=== PATIENT | female | born 1995 | race Caucasian/White ===

== ENCOUNTER 2016-07-16 12:40 | Emergency (ER) | payer OTHER ==
[2016-07-16 12:51] VITALS: RESP 16
[2016-07-16] MEDS ORDERED: OXYCODONE/APAP 5/325 TAB PO ONE (13:16)
--- NOTE | 2016-07-16 13:16 | EDPHY ---
H & P Time Seen by Provider: 07/16/16 13:16 HPI/ROS: Chief complaint. Wrist injury HPI. 21-year-old female fell snowboarding this morning. It was described as a FOOSH type injury. She injured her left wrist. Denies any other injury. Patient is right handed. No previous injury to the left wrist. It hurts to move and she has swelling ROS Constitutional. no fever/chills, no weakness Eyes. no problems with vision ENT. no sore throat, no nasal drainage Cardiovascular. no chest pain Respiratory. no shortness of breath, no cough Abdominal. no abdominal pain, no nausea/vomiting, no diarrhea . no problems urinating MS. Left wrist pain and swelling Skin. no rash Lymph. no swollen glands Neuro. no headache, no dizziness, no difficulty walking or with speech Past Medical/Surgical History: Healthy Social History: Single, nonsmoker, no alcohol Smoking Status: Never smoked Physical Exam: General Appearance: Alert well-developed female moderate distress vital signs are stable Eyes: Pupils equal and round no pallor or injection. ENT, Mouth: Mucous membranes are moist. Respiratory: There are no retractions, lungs are clear to auscultation. Cardiovascular: Regular rate and rhythm. Gastrointestinal: Abdomen is soft and nontender, no masses, bowel sounds normal. Neurological: Awake and alert, sensory and motor exams grossly normal. Skin: Warm and dry, no rashes. Musculoskeletal: Neck is supple nontender. Extremities obvious swelling on the radial aspect of the left wrist. No significant deformity. Distal motor vascular sensitivity is intact. Elbows okay Psychiatric: Patient is oriented X 3, there is no agitation. Constitutional: Initial Vital Signs Temperature (C) 36.8 C 07/16/16 12:48 Heart Rate 92 07/16/16 12:48 Respiratory Rate 16 07/16/16 12:48 Blood Pressure 133/88 H 07/16/16 12:48 O2 Sat (%) 99 07/16/16 12:48 O2 Delivery Mode Room Air Allergies/Adverse Reactions: No Known Allergies Allergy (Unverified 07/16/16 12:48) Home Medications: Medication Instructions Recorded Control Pills 07/16/16 Ondansetron Odt [Zofran Odt] 4 mg PO Q4PRN PRN #4 tab 07/16/16 oxyCODONE/APAP 5/325 [Percocet 1 tab PO Q4-6PRN PRN #16 tab 07/16/16 5/325] Medical Decision Making - Diagnostics Imaging: X-ray of the left wrist interpreted by me shows a nondisplaced distal radial fracture. It is not comminuted or intra-articular Procedures: Patient is placed in a sugar-tong splint left arm and placed in a sling. Post splint application shows good anatomic position and distal motor vascular sensitivity to be intact ED Course/Re-evaluation: The patient, her mom and dad and I discussed imaging study results, treatment plan, importance of follow-up and further evaluation. They expressed understanding and agreement Differential Diagnosis: I considered fracture, dislocation, sprain - Data Points Medications Given: Discontinued Medications Oxycodone/Acetaminophen (Percocet 5/325) 1 tab PO EDNOW ONE Stop: 07/16/16 13:17 Last Admin: 07/16/16 13:23 Dose: 1 tab Departure - Departure Disposition: Home, Routine, Self-Care Clinical Impression: Closed left radial fracture Qualifiers: Encounter type: initial encounter Radius location: distal Fracture morphology: other extra-articular Qualifier Code: (S52.552A) Other extraarticular fracture of lower end of left radius, initial encounter for closed fracture Condition: Good Instructions: Wrist Fracture in Adults (ED) Additional Instructions: Ice on top of the splint next 24-48 hours. Splint and sling until you see orthopedist. Percocet or Tylenol as needed for pain. Return for worsening pain , numbness or weakness to fingers. Call tomorrow morning to arrange follow-up appointment and further evaluation Referrals: NONE *PRIMARY CARE P,. [Primary Care Provider] - As per Instructions Reynold Osborne MD [Medical Doctor] - 5-7 days, call for appt. Susannah Sanchez MD [Medical Doctor] - As per Instructions Theo Sullivan MD [Medical Doctor] - As per Instructions Prescriptions: oxyCODONE/APAP 5/325 [Percocet 5/325] 1 tab PO Q4-6PRN PRN #16 tab PRN Reason: Pain, Moderate Ondansetron Odt [Zofran Odt] 4 mg PO Q4PRN PRN #4 tab PRN Reason: Nausea/Vomiting, Use 1st
[2016-07-16 14:42] VITALS: BP 134/84; PULSE 91; TEMP 99.1; O2SAT 98
--- NOTE | 2016-07-16 15:01 | DX ---
Left wrist series 4 views 1322 hours. History: Snowboarding injury with left wrist pain. Findings: There is a nondisplaced fracture distal left radial metaphysis. There does not appear to be intra-articular involvement. No additional fractures are seen. Joint spaces are normal. Impression: 1. Nondisplaced fracture distal left radial metaphysis.
== END 2016-07-16 14:39 | disposition home or self-care (01) ==
DX: S52.552A Other extraarticular fracture of lower end of left radius, initial encounter for closed fracture (principal); V00.311A Fall from snowboard, initial encounter; Y99.8 Other external cause status; Y93.23 Activity, snow (alpine) (downhill) skiing, snowboarding, sledding, tobogganing and snow tubing
CPT/HCPCS: A4565